=== PATIENT | male | born 1955 | race Two or more races ===

== ENCOUNTER 2018-01-09 10:00 | Inpatient (IN) | payer MEDICARE, OTHER ==
[~2018-01-09] VITALS: Ht 185.4 cm; Wt 71.8 kg
[2018-01-09] MEDS ORDERED: Solu-MEDROL 125mg Inj IVP ONE (10:15)
[2018-01-09] MEDS ORDERED: Ipratropium 0.02% Inh Soln 2.5ml UD HHN ONE (10:15)
[2018-01-09 10:19] VITALS: BP 127/89
[2018-01-09] MEDS ORDERED: LEXAPRO10 MG ORAL (10:27)
[2018-01-09] MEDS ORDERED: QUETIAPINE FUM400 MG ORAL (10:27)
[2018-01-09] MEDS ORDERED: DIABETA ORAL (10:27)
[2018-01-09] MEDS: Albuterol ud Inhalation HHN SCH ×3 (10:35→10:45)
[2018-01-09 10:47] LABS: BASOPHILS % (AUTO) 0.8 % (0.0-2.0); EOSINOPHILS % (AUTO) 2.9 % (0.0-3.0); LYMPHOCYTES % (AUTO) 17.1 % (20.0-45.0); MEAN CORPUSCULAR VOLUME 90 FL (80-99); MONOCYTES % (AUTO) 6.5 % (1.0-10.0); NEUTROPHILS % (AUTO) 72.7 % (45.0-75.0); PLATELET COUNT 258 K/UL (150-450); RED BLOOD COUNT 5.21 M/UL (4.70-6.10); RED CELL DISTRIBUTION WIDTH 11.5 % (11.6-14.8); WHITE BLOOD COUNT 9.3 K/UL (4.8-10.8)
[2018-01-09] MEDS ORDERED: TYLENOL EXTRA500 MG ORAL (10:47)
[2018-01-09] MEDS ORDERED: MILK OF MA400 MG/51 ORAL (10:47)
[2018-01-09] MEDS ORDERED: PROTONIX40 MG ORAL (10:47)
[2018-01-09] MEDS ORDERED: LEVOTHYROXINE75 MCG ORAL (10:47)
[2018-01-09] MEDS ORDERED: LEVEMIR FL100 UNIT/1 SUBQ (10:47)
[2018-01-09 10:49] LABS: ANION GAP 7 mmol/L (5-15); BLOOD UREA NITROGEN 17 mg/dL (7-18); CALCIUM 9.6 MG/DL (8.5-10.1); CARBON DIOXIDE 30 MMOL/L (21-32); CHLORIDE 99 MMOL/L (98-107); CREATININE 1.3 MG/DL (0.55-1.30); POTASSIUM 4.6 MMOL/L (3.5-5.1); SODIUM 136 MMOL/L (136-145)
[2018-01-09 10:50] LABS: APPEARANCE,URINE CLEAR; BILIRUBIN, URINE NEGATIVE (NEGATIVE); COLOR,URINE PALE YELLOW; GLUCOSE, URINE (UA) 3+ (NEGATIVE); KETONES,URINE NEGATIVE (NEGATIVE); LEUKOCYTE ESTERASE ,URINE NEGATIVE (NEGATIVE); NITRITE,URINE NEGATIVE (NEGATIVE); PH,URINE 6 (4.5-8.0); PROTEIN,URINE NEGATIVE (NEGATIVE); UROBILINOGEN,URINE NORMAL MG/DL (0.0-1.0)
[2018-01-09 10:59] LABS: ALANINE AMINOTRANSFERASE 14 U/L (12-78); ALBUMIN 3.6 G/DL (3.4-5.0); ALBUMIN/GLOBULIN RATIO 0.7 (1.0-2.7); ALKALINE PHOSPHATASE 109 U/L (46-116); ASPARTATE AMINO TRANSFERASE 14 U/L (15-37); BILIRUBIN,TOTAL 0.5 MG/DL (0.2-1.0); CREATINE KINASE 56 U/L (26-308)
--- NOTE | 2018-01-09 11:12 | Diagnostic Imaging Report ---
Indication: Cough Technique: One view of the chest Comparison: none Findings: There is central bronchial wall thickening. The lungs and pleural spaces are otherwise clear. The heart size is normal. Impression: Central bronchial wall thickening, likely on the basis of bronchitis or reactive airway disease No acute process otherwise
[2018-01-09] MEDS: NovoLOG Insulin Flexpen SUBQ SCH ×3 (11:30→20:44)
[2018-01-09] MEDS ORDERED: Nitroglycerin Subl 0.4mg tab SL PRN (11:30)
[2018-01-09] MEDS ORDERED: Albuterol/Ipratropium 3ml neb HHN PRN (11:30)
[2018-01-09] MEDS ORDERED: Promethazine/Codeine 5ml UD ORAL PRN (11:30)
[2018-01-09] MEDS: Solu-MEDROL 125mg Inj IV SCH ×2 (12:47→17:15)
--- NOTE | 2018-01-09 13:10 | Consultation ---
History of Present Illness General Date patient seen: Jan 09, 2018 Chief Complaint: Upper Respiratory Illness Present Illness HPI Pt came from [facility] for congestion since last night. Pt is not complaining of any pain. A + O x2. Has a skin tear on his nose. Pt refuses to be changed into a gown. Allergies: Coded Allergies: No Known Allergies (Unverified , 01/09/18) Medication History Scheduled Escitalopram Oxalate* (Lexapro*), 10 MG ORAL DAILY, (Reported) Insulin Detemir (Levemir Flexpen), 20 SUBQ DAILY, (Reported) Levothyroxine Sodium* (Levothyroxine Sodium*), 50 MCG ORAL DAILY, (Reported) Magnesium Hydroxide* (Milk Of Magnesia*), 30 ML ORAL EVERY 6 HOURS, (Reported) Pantoprazole* (Protonix*), 40 MG ORAL DAILY, (Reported) Quetiapine Fumarate* (Quetiapine Fumarate*), 400 MG ORAL BID, (Reported) [diabeta], 2.5 MG ORAL BID, (Reported) Scheduled PRN Acetaminophen* (Tylenol Extra Strength*), 325 MG ORAL Q6H PRN for Mild Pain/ Temp > 100.5, (Reported) Patient History Healthcare decision maker Resuscitation status Advanced Directive on File Past Medical/Surgical History Past Medical/Surgical History: (1) Diabetes mellitus (2) Depression Review of Systems All Other Systems: negative except mentioned in HPI Physical Exam General Appearance: WD/WN Lines, tubes and drains: peripheral, central line HEENT: atraumatic, anicteric Neck: non-tender, normal alignment Respiratory/Chest: chest wall non-tender, lungs clear Breasts: no masses Cardiovascular/Chest: normal peripheral pulses, normal rate Abdomen: normal bowel sounds Genitourinary/Rectal: normal genital exam Last 24 Hour Vital Signs Date Time Temp Pulse Resp B/P (MAP) Pulse Ox O2 Delivery O2 Flow Rate FiO2 01/09/18 12:17 Room Air 01/09/18 12:02 98.0 85 17 125/89 95 Room Air 01/09/18 11:57 79 19 100 Room Air 01/09/18 11:05 75 25 Room Air 21 01/09/18 11:05 21 01/09/18 11:05 75 25 100 Room Air 21 01/09/18 10:19 97.6 80 17 127/89 94 Room Air 01/09/18 10:19 80 17 Room Air 94 01/09/18 10:02 98.8 79 18 129/77 93 Room Air Laboratory Tests Test 01/09/18 10:20 01/09/18 10:35 White Blood Count 9.3 K/UL (4.8-10.8) Red Blood Count 5.21 M/UL (4.70-6.10) Hemoglobin 16.0 G/DL (14.2-18.0) Hematocrit 47.0 % (42.0-52.0) Mean Corpuscular Volume 90 FL (80-99) Mean Corpuscular Hemoglobin 30.8 PG (27.0-31.0) Mean Corpuscular Hemoglobin Concent 34.1 G/DL (32.0-36.0) Red Cell Distribution Width 11.5 % (11.6-14.8) L Platelet Count 258 K/UL (150-450) Mean Platelet Volume 6.6 FL (6.5-10.1) Neutrophils (%) (Auto) 72.7 % (45.0-75.0) Lymphocytes (%) (Auto) 17.1 % (20.0-45.0) L Monocytes (%) (Auto) 6.5 % (1.0-10.0) Eosinophils (%) (Auto) 2.9 % (0.0-3.0) Basophils (%) (Auto) 0.8 % (0.0-2.0) Prothrombin Time 10.3 SEC (9.30-11.50) Prothromb Time International Ratio 1.0 (0.9-1.1) Activated Partial Thromboplast Time 30 SEC (23-33) Sodium Level 136 MMOL/L (136-145) Potassium Level 4.6 MMOL/L (3.5-5.1) Chloride Level 99 MMOL/L (98-107) Carbon Dioxide Level 30 MMOL/L (21-32) Anion Gap 7 mmol/L (5-15) Blood Urea Nitrogen 17 mg/dL (7-18) Creatinine 1.3 MG/DL (0.55-1.30) Estimat Glomerular Filtration Rate 55.9 mL/min (>60) Glucose Level 238 MG/DL (74-106) H Lactic Acid Level 1.10 mmol/L (0.4-2.0) Calcium Level 9.6 MG/DL (8.5-10.1) Magnesium Level 1.7 MG/DL (1.8-2.4) L Total Bilirubin 0.5 MG/DL (0.2-1.0) Aspartate Amino Transf (AST/SGOT) 14 U/L (15-37) L Alanine Aminotransferase (ALT/SGPT) 14 U/L (12-78) Alkaline Phosphatase 109 U/L (46-116) Total Creatine Kinase 56 U/L (26-308) Troponin I 0.000 ng/mL (0.000-0.056) Pro-B-Type Natriuretic Peptide 8 pg/mL (0-125) Total Protein 8.6 G/DL (6.4-8.2) H Albumin 3.6 G/DL (3.4-5.0) Globulin 5.0 g/dL Albumin/Globulin Ratio 0.7 (1.0-2.7) L Urine Color Pale yellow Urine Appearance Clear Urine pH 6 (4.5-8.0) Urine Specific [place] 1.010 (1.005-1.035) Urine Protein Negative (NEGATIVE) Urine Glucose (UA) 3+ (NEGATIVE) H Urine Ketones Negative (NEGATIVE) Urine Blood Negative (NEGATIVE) Urine Nitrite Negative (NEGATIVE) Urine Bilirubin Negative (NEGATIVE) Urine Urobilinogen Normal MG/DL (0.0-1.0) Urine Leukocyte Esterase Negative (NEGATIVE) Microbiology Date/Time Source Procedure Growth Status 01/09/18 10:15 Nasal Nares Influenza Types A,B Antigen (SRIRAM) - Final Complete 01/09/18 10:30 Rectum Received Height (Feet): 6 Height (Inches): 2.00 Weight (Pounds): 200 Medications Current Medications Medications (Trade) Dose Ordered Sig/Diane Route PRN Reason Start Time Stop Time Status Last Admin Dose Admin Acetaminophen (Tylenol) 650 mg Q4H PRN ORAL fever 01/09/18 11:30 02/08/18 11:29 Albuterol/ Ipratropium (Albuterol/ Ipratropium) 3 ml Q4H PRN HHN dyspnea 01/09/18 11:30 01/14/18 11:29 Clonidine HCl (Catapres Tab) 0.1 mg Q4H PRN ORAL sbp more than 160 01/09/18 11:30 02/08/18 11:29 Dextrose (Dextrose 50%) 25 ml Q30M PRN IV Hypoglycemia 01/09/18 11:30 02/08/18 11:29 Dextrose (Dextrose 50%) 50 ml Q30M PRN IV Hypoglycemia 01/09/18 11:30 02/08/18 11:29 Escitalopram Oxalate (Lexapro) 10 mg DAILY ORAL 01/10/18 09:00 02/09/18 08:59 Heparin Sodium (Porcine) (Heparin 5000 units/ml) 5,000 units EVERY 12 HOURS SUBQ 01/09/18 21:00 02/08/18 20:59 Insulin Aspart (NovoLOG) BEFORE MEALS AND HS SUBQ 01/09/18 11:30 02/08/18 11:29 Levothyroxine Sodium (Synthroid) 50 mcg BEFORE BREAKFAST ORAL 01/10/18 06:30 02/09/18 06:29 Lorazepam (Ativan 2mg/ml 1ml) 0.5 mg Q4H PRN IV For Anxiety 01/09/18 11:30 01/16/18 11:29 Methylprednisolone Sodium Succinate (Solu-MEDROL) 60 mg EVERY 6 HOURS IV 01/09/18 12:00 02/08/18 11:59 01/09/18 12:47 Morphine Sulfate (Morphine Sulfate) 2 mg Q4H PRN IVP severe pain 7-10 01/09/18 11:30 01/16/18 11:29 Nitroglycerin (Ntg) 0.4 mg Q5M X 3 DOSES PRN SL Prn Chest Pain 01/09/18 11:30 02/08/18 11:29 Ondansetron HCl (Zofran) 4 mg Q6H PRN IVP Nausea & Vomiting 01/09/18 11:30 02/08/18 11:29 Promethazine HCl/ Codeine (Phenergan with Codeine) 5 ml Q6H PRN ORAL cough 01/09/18 11:30 02/08/18 11:29 Quetiapine Fumarate (SEROquel) 400 mg BID ORAL 01/09/18 18:00 02/08/18 17:59 Sodium Chloride 1,000 ml @ 300 mls/hr Q3H20M IV 01/09/18 10:15 02/08/18 10:14 Temazepam (Restoril) 15 mg HSPRN PRN ORAL Insomnia 01/09/18 21:00 01/16/18 20:59 Theophylline (Y[place]-Dur) 100 mg EVERY 12 HOURS ORAL 01/09/18 21:00 02/08/18 20:59 Assessment/Plan Problem List: (1) Acute bronchitis ICD Codes: J20.9 - Acute bronchitis, unspecified SNOMED: 22691935 (2) COPD exacerbation ICD Codes: J44.1 - Chronic obstructive pulmonary disease with (acute) exacerbation SNOMED: 840330355 (3) Diabetes mellitus ICD Codes: E11.9 - Type 2 diabetes mellitus without complications SNOMED: 39703858 (4) Depression ICD Codes: F32.9 - Major depressive disorder, single episode, unspecified SNOMED: 15860815 Assessment/Plan respiratory treatment titrate fio2 to sat of 92% check sputum continue abx sliding scale insulin coverage dvt prophylaxis. psych evaluation Sangeetha Cat MD Jan 09, 2018 13:10
[2018-01-09] MEDS: LORazepam Inj 2mg/ml 1ml IV PRN (16:04)
--- NOTE | 2018-01-09 16:05 | Emergency Room Report ---
History of Present Illness General Chief Complaint: Upper Respiratory Illness Source: Patient, Medical Record Present Illness HPI Patient presents with shortness of breath and cough. History of COPD. He's been using inhalers but still feels short of breath. There is some mild chest pain also. He is got productive phlegm but is clear in color. Chest pain rated 0/10. He fell several days ago and scraped his nose. No LOC. No extremity pain. Denies NVD, dysuria, other rashes, abdominal pain, NVD, back pain, calf tenderness or edema, headache. In assisted living due to bipolar disorder. Denies SI or HI. Smokes. Allergies: Coded Allergies: No Known Allergies (Unverified , 01/09/18) Patient History Past Medical History: see triage record Social History: Reports: smoking Social History Narrative assisted living Reviewed Nursing Documentation: PMH: Agreed; PSxH: Agreed Nursing Documentation-PMH Past Medical History Deferred: Pt Cognitively Impaired Past Medical History: No History, Except For Hx COPD: Yes Hx Diabetes: Yes Hx Gastrointestinal Problems: Yes - Gerd Hx Neurological Problems: Yes - Bipolar Hx Cerebrovascular Accident: No Hx Transient Ischemic Attacks: No Hx Dementia: No Hx Alzheimer's Disease: No Hx Parkinson's Disease: No Hx Meningitis: No Hx Encephalitis: No Hx Seizures: No Hx Epilepsy: No Hx Multiple Sclerosis: No Hx Cerebral Palsy: No Hx Amyotrophic Lat Sclerosis: No Hx Guillian-[place] Syndrome: No Hx Paralysis: No Hx Peripheral Neuropathy: No - hx of DM Hx Spinal Cord Injury: No Hx Head Trauma: No Hx Traumatic Brain Injury: No Hx Memory Loss: Yes Hx Concentration Difficulty: Yes Hx Speech Problem: No Hx Tremors: No Review of Systems All Other Systems: negative except mentioned in HPI Physical Exam Vital Signs Date Time Temp Pulse Resp B/P (MAP) Pulse Ox O2 Delivery O2 Flow Rate FiO2 01/09/18 10:02 98.8 79 18 129/77 93 Room Air 01/09/18 10:19 94 Sp02 EP Interpretation: reviewed, abnormal - interpreted as low by me General Appearance: well appearing, no apparent distress, GCS 15 Head: normocephalic Eyes: bilateral eye normal inspection, bilateral eye PERRL ENT: moist mucus membranes Neck: supple Respiratory: wheezing, expiration, other - some tachypnea Cardiovascular #1: regular rate, rhythm Cardiovascular #2: 2+ radial (R) Gastrointestinal: normal inspection, normal bowel sounds, non tender, no mass, non-distended Genitourinary: no CVA tenderness Musculoskeletal: back normal, gait/station normal, normal range of motion Neurologic: alert, grossly normal, oriented - X2 Psychiatric: depressed affect Skin: warm/dry, abrasions - nose Medical Decision Making Diagnostic Impression: Primary Impression: COPD exacerbation Additional Impressions: Chest pain Qualified Codes: R07.9 - Chest pain, unspecified Hypoxia ER Course Patient presents with dyspnea and cough. DDX: PNA, COPD exacerbation, bronchitis, pneumothorax amongst others. Evaluation with EKG, CXR and labs. Treatment with solu-medrol, breathing treatments and IV hydration. Cardiac monitoring. EKG without injury. CXR no infiltrate. Labs with normal WBC. CMP with elevated glucose. Troponin and lactate normal. Some improvement, but still with hypoxia and wheezing. Patient admitted tele Dr. Marie. Laboratory Tests Test 01/09/18 10:20 01/09/18 10:35 White Blood Count 9.3 K/UL (4.8-10.8) Red Blood Count 5.21 M/UL (4.70-6.10) Hemoglobin 16.0 G/DL (14.2-18.0) Hematocrit 47.0 % (42.0-52.0) Mean Corpuscular Volume 90 FL (80-99) Mean Corpuscular Hemoglobin 30.8 PG (27.0-31.0) Mean Corpuscular Hemoglobin Concent 34.1 G/DL (32.0-36.0) Red Cell Distribution Width 11.5 % (11.6-14.8) L Platelet Count 258 K/UL (150-450) Mean Platelet Volume 6.6 FL (6.5-10.1) Neutrophils (%) (Auto) 72.7 % (45.0-75.0) Lymphocytes (%) (Auto) 17.1 % (20.0-45.0) L Monocytes (%) (Auto) 6.5 % (1.0-10.0) Eosinophils (%) (Auto) 2.9 % (0.0-3.0) Basophils (%) (Auto) 0.8 % (0.0-2.0) Prothrombin Time 10.3 SEC (9.30-11.50) Prothrombin Time INR 1.0 (0.9-1.1) PTT 30 SEC (23-33) Sodium Level 136 MMOL/L (136-145) Potassium Level 4.6 MMOL/L (3.5-5.1) Chloride Level 99 MMOL/L (98-107) Carbon Dioxide Level 30 MMOL/L (21-32) Anion Gap 7 mmol/L (5-15) Blood Urea Nitrogen 17 mg/dL (7-18) Creatinine 1.3 MG/DL (0.55-1.30) Estimate Glomerular Filtration Rate 55.9 mL/min (>60) Glucose Level 238 MG/DL (74-106) H Lactic Acid Level 1.10 mmol/L (0.4-2.0) Calcium Level 9.6 MG/DL (8.5-10.1) Magnesium Level 1.7 MG/DL (1.8-2.4) L Total Bilirubin 0.5 MG/DL (0.2-1.0) Aspartate Amino Transferase (AST) 14 U/L (15-37) L Alanine Aminotransferase (ALT) 14 U/L (12-78) Alkaline Phosphatase 109 U/L (46-116) Total Creatine Kinase 56 U/L (26-308) Troponin I 0.000 ng/mL (0.000-0.056) Pro-B-Type Natriuretic Peptide 8 pg/mL (0-125) Total Protein 8.6 G/DL (6.4-8.2) H Albumin 3.6 G/DL (3.4-5.0) Globulin 5.0 g/dL Albumin/Globulin Ratio 0.7 (1.0-2.7) L Urine Color Pale yellow Urine Appearance Clear Urine pH 6 (4.5-8.0) Urine Specific [place] 1.010 (1.005-1.035) Urine Protein Negative (NEGATIVE) Urine Glucose (UA) 3+ (NEGATIVE) H Urine Ketones Negative (NEGATIVE) Urine Blood Negative (NEGATIVE) Urine Nitrite Negative (NEGATIVE) Urine Bilirubin Negative (NEGATIVE) Urine Urobilinogen Normal MG/DL (0.0-1.0) Urine Leukocyte Esterase Negative (NEGATIVE) Microbiology Date/Time Source Procedure Growth Status 01/09/18 10:15 Nasal Nares Influenza Types A,B Antigen (SRIRAM) - Final Complete EKG Diagnostic Results Rate: normal Rhythm: NSR ST Segments: no acute changes - NSSTTWchanges Rhythm Strip Diag. Results EP Interpretation: yes Rhythm: NSR, no PVC's, no ectopy Chest X-Ray Diagnostic Results Chest X-Ray Diagnostic Results : Chest X-Ray Ordered: Yes # of Views/Limited/Complete: 1 View Indication: Shortness of Breath Interpretation: no consolidation, no effusion, no pneumothorax Impression: Other - COPD Electronically Signed by: Electronically signed by Colt Zurita MD Last Vital Signs Date Time Temp Pulse Resp B/P (MAP) Pulse Ox O2 Delivery O2 Flow Rate FiO2 01/09/18 12:17 Room Air 01/09/18 12:02 98.0 85 17 125/89 95 01/09/18 11:57 21 Disposition: ADMITTED INPATIENT Condition: Serious Referrals: Scott Marie DO (PCP) Colt Zurita MD Jan 09, 2018 16:05
[2018-01-09] MEDS ORDERED: DiphenhydrAMINE 50mg/ml Inj IM SCH (17:00)
[2018-01-09] MEDS ORDERED: LORazepam Inj 2mg/ml 1ml IM SCH (17:00)
[2018-01-09] MEDS ORDERED: Haloperidol 5mg/ml Inj IM SCH (17:00)
[2018-01-09] MEDS: QUEtiapine 200mg tab ORAL SCH (17:15)
[2018-01-09 18:28] VITALS: BP 93/53
--- NOTE | 2018-01-09 18:30 | History and Physical Report ---
DATE OF ADMISSION: 01/09/2018 APPROXIMATE TIME: 1 p.m. CONSULTANTS: 1. Sangeetha Cat M.D. 2. Rene Vieira M.D. CHIEF COMPLAINT: Shortness of breath, COPD exacerbation, bipolar. BRIEF HISTORY: The patient is a 62-year-old male from [facility] presented with above-mentioned diagnosis, short of breath for two days, getting worse, slight wheezing, came to [place], diagnosed with above, admitted to medical floor for further treatment. Currently, slight short of breath. Slightly anxious in bed, no complaint. REVIEW OF SYSTEMS: No chest pain. Slight short of breath. No nausea, vomiting, or diarrhea. PAST MEDICAL HISTORY: Includes COPD, diabetes, bipolar. PAST SURGICAL HISTORY: Bilateral toes surgery. MEDICATIONS: Lexapro, Synthroid, heparin, Restoril, [place], Seroquel, Solu-Medrol, albuterol, Tylenol, morphine, Ativan, Catapres, Phenergan with codeine. ALLERGIES: Denies. SOCIAL HISTORY: Positive smoking. No alcohol. No intravenous drug abuse. FAMILY HISTORY: Noncontributory. PHYSICAL EXAMINATION: GENERAL: Calm, slightly anxious in bed, oriented x2, in no acute distress. VITAL SIGNS: Temperature is 98 degrees, pulse 85, respiratory rate 17, blood pressure 125/89. CARDIOVASCULAR: No murmur. LUNGS: Poor air exchange. Slight wheeze . ABDOMEN: Bowel sounds positive. Nontender. Nondistended. EXTREMITIES: No cyanosis, clubbing, or edema. NEUROLOGIC: The patient moves all extremities, slightly weak. LABORATORY AND DIAGNOSTIC DATA: Labs at this time show CBC is normal. BMP shows glucose 238, troponin 0.0, otherwise normal. INR is 1.0. Urinalysis show 3+ glucose. ASSESSMENT: 1. COPD exacerbation. 2. Diabetes. 3. Bipolar. 4. Hypothyroid. PLAN: 1. O2 and pulmonary treatment. 2. Taper off steroids. 3. Blood sugar control. 4. Dietary followup. 5. OT/PT. 6. Dietary evaluation. 7. CBC and BMP in the morning. 8. We will continue to follow the patient. Scott Marie D.O. DR: Aissatou JOB#: [id number] CC:
[2018-01-09 20:00] VITALS: BP 94/59
[2018-01-09] MEDS: Theophylline ER 100mg ORAL SCH (20:44)
[2018-01-09] MEDS: Heparin 5000 units/ml inj SUBQ SCH (20:45)
[2018-01-10] VITALS: BP 115/57
[2018-01-10] MEDS: Solu-MEDROL 125mg Inj IV SCH ×3 (00:09→12:48)
[2018-01-10 04:00] VITALS: BP 113/58
[2018-01-10] MEDS: NovoLOG Insulin Flexpen SUBQ SCH ×4 (05:47→20:48)
[2018-01-10 08:20] VITALS: BP 125/71
[2018-01-10] MEDS: Theophylline ER 100mg ORAL SCH ×2 (08:31→20:45)
[2018-01-10] MEDS: QUEtiapine 200mg tab ORAL SCH ×2 (08:31→17:27)
[2018-01-10] MEDS: Morphine Sulfate 2mg/ml Inj IVP PRN ×2 (08:33→15:34)
[2018-01-10] MEDS: Heparin 5000 units/ml inj SUBQ SCH ×2 (08:33→20:47)
[2018-01-10 09:19] LABS: HEMOGLOBIN 14.8 G/DL (14.2-18.0); MEAN CORPUSCULAR VOLUME 90 FL (80-99); PLATELET COUNT 238 K/UL (150-450); RED BLOOD COUNT 4.77 M/UL (4.70-6.10); RED CELL DISTRIBUTION WIDTH 11.3 % (11.6-14.8); WHITE BLOOD COUNT 13.3 K/UL (4.8-10.8)
[2018-01-10 09:41] LABS: ALANINE AMINOTRANSFERASE 17 U/L (12-78); ALBUMIN 3.5 G/DL (3.4-5.0); ALBUMIN/GLOBULIN RATIO 0.7 (1.0-2.7); ALKALINE PHOSPHATASE 103 U/L (46-116); ANION GAP 10 mmol/L (5-15); ASPARTATE AMINO TRANSFERASE 24 U/L (15-37); BILIRUBIN,TOTAL 0.4 MG/DL (0.2-1.0); BLOOD UREA NITROGEN 24 mg/dL (7-18); CALCIUM 9.7 MG/DL (8.5-10.1); CARBON DIOXIDE 25 MMOL/L (21-32); CHLORIDE 101 MMOL/L (98-107); CREATININE 1.6 MG/DL (0.55-1.30); POTASSIUM 4.4 MMOL/L (3.5-5.1); SODIUM 136 MMOL/L (136-145)
[2018-01-10 12:13] VITALS: BP 107/71
--- NOTE | 2018-01-10 13:02 | Pulmonology Progress Note ---
Assessment/Plan Problems: (1) Acute bronchitis (2) COPD exacerbation (3) Diabetes mellitus (4) Depression Assessment/Plan taper steroids f/u wbc, leukocytosis most likely secondary to steroids continue abx titrate fio2 to sat of 92% sliding scale, diabetic diet symptomatic treatment sputum cultures still pending. Subjective ROS Limited/Unobtainable: No Interval Events: less cough, less short of breath Allergies: Coded Allergies: No Known Allergies (Unverified , 01/09/18) Objective Last 24 Hour Vital Signs Date Time Temp Pulse Resp B/P (MAP) Pulse Ox O2 Delivery O2 Flow Rate FiO2 01/10/18 12:13 97.7 94 17 107/71 (83) 98 01/10/18 09:03 98.1 01/10/18 08:49 Room Air 01/10/18 08:20 98.1 88 17 125/71 (89) 96 01/10/18 04:00 98.5 78 18 113/58 (76) 94 01/10/18 00:00 98.8 71 19 115/57 (76) 94 01/09/18 21:00 Room Air 01/09/18 20:00 99.0 73 19 94/59 (71) 98 01/09/18 18:28 97.5 106 17 93/53 (66) 96 Intake and Output 01/09/18 01/10/18 19:00 07:00 Intake Total 1000 ml 360 ml Output Total 800 ml 800 ml Balance 200 ml -440 ml Intake Oral 1000 ml 360 ml Output Urine Total 800 ml 800 ml # Voids 4 2 General Appearance: WD/WN HEENT: normocephalic, atraumatic Respiratory/Chest: chest wall non-tender, crackles/rales Cardiovascular: normal peripheral pulses, normal rate Abdomen: normal bowel sounds, soft, non tender Genitourinary: normal external genitalia Extremities: no cyanosis Skin: no rash Microbiology Date/Time Source Procedure Growth Status 01/09/18 10:15 Nasal Nares Influenza Types A,B Antigen (SRIRAM) - Final Complete 01/09/18 10:30 Rectum Received Laboratory Tests 01/10/18 09:10: White Blood Count 13.3H, Red Blood Count 4.77, Hemoglobin 14.8, Hematocrit 43.0 , Mean Corpuscular Volume 90, Mean Corpuscular Hemoglobin 31.1H, Mean Corpuscular Hemoglobin Concent 34.4, Red Cell Distribution Width 11.3L, Platelet Count 238, Mean Platelet Volume 6.0L, Neutrophils (%) (Auto) , Lymphocytes (%) (Auto) , Monocytes (%) (Auto) , Eosinophils (%) (Auto) , Basophils (%) (Auto) , Differential Total Cells Counted 100, Neutrophils % ( Manual) 80H, Lymphocytes % (Manual) 14L, Monocytes % (Manual) 6, Eosinophils % ( Manual) 0, Basophils % (Manual) 0, Band Neutrophils 0, Platelet Estimate Adequate, Platelet Morphology Normal, Sodium Level 136, Potassium Level 4.4, Chloride Level 101, Carbon Dioxide Level 25, Anion Gap 10, Blood Urea Nitrogen 24H, Creatinine 1.6H, Estimat Glomerular Filtration Rate 44.0, Glucose Level 264H, Calcium Level 9.7, Total Bilirubin 0.4, Aspartate Amino Transf (AST/SGOT) 24, Alanine Aminotransferase (ALT/SGPT) 17, Alkaline Phosphatase 103, Total Protein 8.3H, Albumin 3.5, Globulin 4.8, Albumin/Globulin Ratio 0.7L Current Medications Medications (Trade) Dose Ordered Sig/Diane Route PRN Reason Start Time Stop Time Status Last Admin Dose Admin Acetaminophen (Tylenol) 650 mg Q4H PRN ORAL fever 01/09/18 11:30 02/08/18 11:29 Albuterol/ Ipratropium (Albuterol/ Ipratropium) 3 ml Q4H PRN HHN dyspnea 01/09/18 11:30 01/14/18 11:29 Clonidine HCl (Catapres Tab) 0.1 mg Q4H PRN ORAL sbp more than 160 01/09/18 11:30 02/08/18 11:29 Dextrose (Dextrose 50%) 25 ml Q30M PRN IV Hypoglycemia 01/09/18 11:30 02/08/18 11:29 Dextrose (Dextrose 50%) 50 ml Q30M PRN IV Hypoglycemia 01/09/18 11:30 02/08/18 11:29 Escitalopram Oxalate (Lexapro) 10 mg DAILY ORAL 01/10/18 09:00 02/09/18 08:59 01/10/18 08:31 Heparin Sodium (Porcine) (Heparin 5000 units/ml) 5,000 units EVERY 12 HOURS SUBQ 01/09/18 21:00 02/08/18 20:59 01/10/18 08:33 Insulin Aspart (NovoLOG) BEFORE MEALS AND HS SUBQ 01/09/18 11:30 02/08/18 11:29 01/10/18 11:55 Levothyroxine Sodium (Synthroid) 50 mcg BEFORE BREAKFAST ORAL 01/10/18 06:30 02/09/18 06:29 01/10/18 05:44 Lorazepam (Ativan 2mg/ml 1ml) 0.5 mg Q4H PRN IV For Anxiety 01/09/18 11:30 01/16/18 11:29 01/09/18 16:04 Methylprednisolone Sodium Succinate (Solu-MEDROL) 60 mg EVERY 6 HOURS IV 01/09/18 12:00 02/08/18 11:59 01/10/18 12:48 Morphine Sulfate (Morphine Sulfate) 2 mg Q4H PRN IVP severe pain 7-10 01/09/18 11:30 01/16/18 11:29 01/10/18 08:33 Nitroglycerin (Ntg) 0.4 mg Q5M X 3 DOSES PRN SL Prn Chest Pain 01/09/18 11:30 02/08/18 11:29 Ondansetron HCl (Zofran) 4 mg Q6H PRN IVP Nausea & Vomiting 01/09/18 11:30 02/08/18 11:29 Promethazine HCl/ Codeine (Phenergan with Codeine) 5 ml Q6H PRN ORAL cough 01/09/18 11:30 02/08/18 11:29 01/10/18 08:31 Quetiapine Fumarate (SEROquel) 400 mg BID ORAL 01/09/18 18:00 02/08/18 17:59 01/10/18 08:31 Temazepam (Restoril) 15 mg HSPRN PRN ORAL Insomnia 01/09/18 21:00 01/16/18 20:59 Theophylline ([place]) 100 mg EVERY 12 HOURS ORAL 01/09/18 21:00 02/08/18 20:59 01/10/18 08:31 Sangeetha Cat MD Jan 10, 2018 13:02
--- NOTE | 2018-01-10 14:05 | General Progress Note ---
Assessment/Plan Problem List: (1) Renal insufficiency ICD Codes: N28.9 - Disorder of kidney and ureter, unspecified SNOMED: 724454751, 405348859 (2) Leukocytosis ICD Codes: D72.829 - Elevated white blood cell count, unspecified SNOMED: 236973775, 847234507 (3) Diabetes mellitus ICD Codes: E11.9 - Type 2 diabetes mellitus without complications SNOMED: 15779717 (4) Acute bronchitis ICD Codes: J20.9 - Acute bronchitis, unspecified SNOMED: 33311689 (5) COPD exacerbation ICD Codes: J44.1 - Chronic obstructive pulmonary disease with (acute) exacerbation SNOMED: 659591320 Status: stable, progressing Assessment/Plan ot pt diet abx cbc bmp am Subjective Constitutional: Reports: weakness Respiratory: Reports: shortness of breath Allergies: Coded Allergies: No Known Allergies (Unverified , 01/09/18) All Systems: reviewed and negative except above Subjective calm in room Objective Last 24 Hour Vital Signs Date Time Temp Pulse Resp B/P (MAP) Pulse Ox O2 Delivery O2 Flow Rate FiO2 01/10/18 12:13 97.7 94 17 107/71 (83) 98 01/10/18 09:03 98.1 01/10/18 08:49 Room Air 01/10/18 08:20 98.1 88 17 125/71 (89) 96 01/10/18 04:00 98.5 78 18 113/58 (76) 94 01/10/18 00:00 98.8 71 19 115/57 (76) 94 01/09/18 21:00 Room Air 01/09/18 20:00 99.0 73 19 94/59 (71) 98 01/09/18 18:28 97.5 106 17 93/53 (66) 96 Intake and Output 01/09/18 01/10/18 19:00 07:00 Intake Total 1000 ml 360 ml Output Total 800 ml 800 ml Balance 200 ml -440 ml Intake Oral 1000 ml 360 ml Output Urine Total 800 ml 800 ml # Voids 4 2 Laboratory Tests 01/10/18 09:10: White Blood Count 13.3H, Red Blood Count 4.77, Hemoglobin 14.8, Hematocrit 43.0 , Mean Corpuscular Volume 90, Mean Corpuscular Hemoglobin 31.1H, Mean Corpuscular Hemoglobin Concent 34.4, Red Cell Distribution Width 11.3L, Platelet Count 238, Mean Platelet Volume 6.0L, Neutrophils (%) (Auto) , Lymphocytes (%) (Auto) , Monocytes (%) (Auto) , Eosinophils (%) (Auto) , Basophils (%) (Auto) , Differential Total Cells Counted 100, Neutrophils % ( Manual) 80H, Lymphocytes % (Manual) 14L, Monocytes % (Manual) 6, Eosinophils % ( Manual) 0, Basophils % (Manual) 0, Band Neutrophils 0, Platelet Estimate Adequate, Platelet Morphology Normal, Sodium Level 136, Potassium Level 4.4, Chloride Level 101, Carbon Dioxide Level 25, Anion Gap 10, Blood Urea Nitrogen 24H, Creatinine 1.6H, Estimat Glomerular Filtration Rate 44.0, Glucose Level 264H, Calcium Level 9.7, Total Bilirubin 0.4, Aspartate Amino Transf (AST/SGOT) 24, Alanine Aminotransferase (ALT/SGPT) 17, Alkaline Phosphatase 103, Total Protein 8.3H, Albumin 3.5, Globulin 4.8, Albumin/Globulin Ratio 0.7L Height (Feet): 6 Height (Inches): 1.00 Weight (Pounds): 158 General Appearance: confused EENT: normal ENT inspection Neck: normal alignment Cardiovascular: normal peripheral pulses, normal rate, regular rhythm Respiratory/Chest: chest wall non-tender, lungs clear, normal breath sounds Abdomen: normal bowel sounds, non tender, soft Extremities: normal inspection Edema: no edema noted Arm (L), no edema noted Arm (R), no edema noted Leg (L), no edema noted Leg (R), no edema noted Pedal (L), no edema noted Pedal (R), no edema noted Generalized Neurologic: motor weakness Skin: normal pigmentation, warm/dry Scott Marie DO Jan 10, 2018 14:05
[2018-01-10 15:58] VITALS: BP 134/68
--- NOTE | 2018-01-10 17:47 | Cardiology Report ---
APPROVED REPORT EKG Measurement Heart [id number] Sinus rhythm with premature atrial complexes Otherwise normal ECG
[2018-01-10 20:00] VITALS: BP 114/76
[2018-01-11] MEDS: NovoLOG Insulin Flexpen SUBQ SCH ×3 (05:48→16:30)
--- NOTE | 2018-01-11 07:45 | Consultation ---
DATE OF CONSULTATION: 01/10/2018 NOTE: POOR AUDIO PSYCHOTHERAPY CONSULTATION PROGRESS NOTE CONSULTING PHYSICIAN: Charla Jacobson PsyD. TREATING ATTENDING: Scott Marie D.O. HISTORY OF PRESENT ILLNESS: The patient is a 62-year-old male patient from . The patient is brought in to the hospital for chronic obstructive pulmonary disease exacerbation. The patient has been very confused, disorganized, , walking around, has been very aggressive and agitated, very combative and . The patient . The patient remains slightly confused and disoriented . The patient . The patient has , however, at this time, the patient is ambulatory and . He denies suicidal or homicidal thoughts or ideations. Denies any . PAST MEDICAL HISTORY: Includes a history of diabetes, COPD. ALLERGIES: The patient has no known drug allergies. SUBSTANCE ABUSE HISTORY: There is no indication of alcohol use. . PSYCHIATRIC HISTORY: The patient has a history of schizophrenia and . SOCIAL HISTORY: The patient is a 62-year-old male patient from . MENTAL STATUS EXAMINATION: The patient is alert and oriented to person and place. Mood is dysphoric. Affect is blunted. Thought process disorganized. Thought content confused with poor attention and concentration. Poor insight, judgment, and impulse control. . ASSESSMENT: 1. . 2. Agitation. 3. . 4. . 5. Positive . 6. . 7. . Charla Jacobson PsyD. DR: EMILY JOB#: [id number] CC:
[2018-01-11 08:00] VITALS: BP 125/73
[2018-01-11] MEDS: Theophylline ER 100mg ORAL SCH (08:55)
[2018-01-11] MEDS: QUEtiapine 200mg tab ORAL SCH ×2 (08:55→17:28)
[2018-01-11] MEDS: Heparin 5000 units/ml inj SUBQ SCH (08:58)
[2018-01-11] MEDS ORDERED: Solu-MEDROL 125mg Inj IV SCH (09:00)
--- NOTE | 2018-01-11 09:37 | Consultation ---
Consult Note Consult Note asked to eval for high Cr Patient presents with shortness of breath and cough. History of COPD. He's been using inhalers but still feels short of breath. There is some mild chest pain also. He is got productive phlegm but is clear in color. Chest pain rated 0/10.He fell several days ago and scraped his nose. No LOC. No extremity pain. Denies NVD, dysuria, other rashes, abdominal pain, NVD, back pain, calf tenderness or edema, headache. In assisted living due to bipolar disorder. Denies SI or HI. Past Medical History Deferred: Pt Cognitively Impaired Past Medical History: No History, Except For Hx COPD: Yes Hx Diabetes: Yes Hx Gastrointestinal Problems: Yes - Gerd Hx Neurological Problems: Yes - Bipolar Hx Peripheral Neuropathy: No - hx of DM Hx Memory Loss: Yes Hx Concentration Difficulty: Yes examined- confused data reviewed Assessment/Plan Acute Renal failure- rise of Cr Psychiatric disease COPD exac. / Acute bronchitis DM OOC Urine studies Hydrate Keep BP over 100 syst taper steroids as needed monitor renal parameters Francis Ryan MD Jan 11, 2018 09:37
[2018-01-11 12:00] VITALS: BP 124/61
--- NOTE | 2018-01-11 13:45 | Pulmonology Progress Note ---
Assessment/Plan Problems: (1) Acute bronchitis (2) COPD exacerbation (3) Diabetes mellitus (4) Depression Assessment/Plan dc steroids f/u wbc, leukocytosis most likely secondary to steroids continue abx titrate fio2 to sat of 92% sliding scale, diabetic diet symptomatic treatment sputum cultures still pending. improving Subjective ROS Limited/Unobtainable: No Constitutional: Reports: no symptoms HEENT: Repors: no symptoms Allergies: Coded Allergies: No Known Allergies (Unverified , 01/09/18) Objective Last 24 Hour Vital Signs Date Time Temp Pulse Resp B/P (MAP) Pulse Ox O2 Delivery O2 Flow Rate FiO2 01/11/18 12:00 97.7 86 18 124/61 (82) 99 01/11/18 09:00 Room Air 01/11/18 08:00 98.1 76 20 125/73 (90) 99 01/10/18 21:00 Room Air 01/10/18 20:00 97.5 86 20 114/76 (89) 97 01/10/18 19:40 79 18 Room Air 21 01/10/18 16:04 97.9 01/10/18 15:58 97.9 79 18 134/68 (90) 99 Intake and Output 01/10/18 01/11/18 18:59 06:59 Intake Total 840 ml Output Total 400 ml Balance 440 ml Intake Oral 840 ml Output Urine Total 400 ml # Voids 3 3 General Appearance: WD/WN HEENT: normocephalic, atraumatic Respiratory/Chest: chest wall non-tender, lungs clear Cardiovascular: normal peripheral pulses, normal rate Abdomen: normal bowel sounds, soft, non tender, no scars Extremities: no cyanosis Skin: no lesions Microbiology Date/Time Source Procedure Growth Status 01/09/18 10:20 Blood Blood Culture - Preliminary NO GROWTH AFTER 24 HOURS Resulted 01/09/18 10:05 Blood Blood Culture - Preliminary NO GROWTH AFTER 24 HOURS Resulted 01/09/18 10:15 Nasal Nares Influenza Types A,B Antigen (SRIRAM) - Final Complete 01/09/18 10:30 Rectum VRE Culture - Final NO VANCOMYCIN RESISTANT ENTEROCOCCUS ... Complete 01/09/18 10:30 Rectum - Final NO CARBAPENEM-RESISTANT ENTEROBACTERI... Complete Current Medications Medications (Trade) Dose Ordered Sig/Diane Route PRN Reason Start Time Stop Time Status Last Admin Dose Admin Acetaminophen (Tylenol) 650 mg Q4H PRN ORAL fever 01/09/18 11:30 02/08/18 11:29 Albuterol/ Ipratropium (Albuterol/ Ipratropium) 3 ml Q4H PRN HHN dyspnea 01/09/18 11:30 01/14/18 11:29 Clonidine HCl (Catapres Tab) 0.1 mg Q4H PRN ORAL sbp more than 160 01/09/18 11:30 02/08/18 11:29 Dextrose (Dextrose 50%) 25 ml Q30M PRN IV Hypoglycemia 01/09/18 11:30 02/08/18 11:29 Dextrose (Dextrose 50%) 50 ml Q30M PRN IV Hypoglycemia 01/09/18 11:30 02/08/18 11:29 Escitalopram Oxalate (Lexapro) 10 mg DAILY ORAL 01/10/18 09:00 02/09/18 08:59 01/11/18 08:55 Heparin Sodium (Porcine) (Heparin 5000 units/ml) 5,000 units EVERY 12 HOURS SUBQ 01/09/18 21:00 02/08/18 20:59 01/10/18 20:47 Insulin Aspart (NovoLOG) BEFORE MEALS AND HS SUBQ 01/09/18 11:30 02/08/18 11:29 01/11/18 11:36 Levothyroxine Sodium (Synthroid) 50 mcg BEFORE BREAKFAST ORAL 01/10/18 06:30 02/09/18 06:29 01/11/18 05:46 Lorazepam (Ativan 2mg/ml 1ml) 0.5 mg Q4H PRN IV For Anxiety 01/09/18 11:30 01/16/18 11:29 01/09/18 16:04 Methylprednisolone Sodium Succinate (Solu-MEDROL) 40 mg DAILY IVP 01/12/18 09:00 02/08/18 11:59 Morphine Sulfate (Morphine Sulfate) 2 mg Q4H PRN IVP severe pain 7-10 01/09/18 11:30 01/16/18 11:29 01/10/18 15:34 Nitroglycerin (Ntg) 0.4 mg Q5M X 3 DOSES PRN SL Prn Chest Pain 01/09/18 11:30 02/08/18 11:29 Ondansetron HCl (Zofran) 4 mg Q6H PRN IVP Nausea & Vomiting 01/09/18 11:30 02/08/18 11:29 Promethazine HCl/ Codeine (Phenergan with Codeine) 5 ml Q6H PRN ORAL cough 01/09/18 11:30 02/08/18 11:29 01/10/18 08:31 Quetiapine Fumarate (SEROquel) 400 mg BID ORAL 01/09/18 18:00 02/08/18 17:59 01/11/18 08:55 Sodium Chloride 1,000 ml @ 75 mls/hr [id number] IV 01/11/18 09:45 02/10/18 09:44 01/11/18 10:28 Tamsulosin HCl (Flomax) 0.4 mg BEDTIME ORAL 01/11/18 21:00 02/10/18 20:59 Temazepam (Restoril) 15 mg HSPRN PRN ORAL Insomnia 01/09/18 21:00 01/16/18 20:59 01/10/18 20:46 Theophylline (Yosi-Dur) 100 mg EVERY 12 HOURS ORAL 01/09/18 21:00 02/08/18 20:59 01/11/18 08:55 Sangeetha Cat MD Jan 11, 2018 13:45
--- NOTE | 2018-01-11 14:04 | Consultation ---
History of Present Illness General Date patient seen: Jan 11, 2018 Chief Complaint: Upper Respiratory Illness Present Illness HPI 62 y/o M with hx of COPD, DM2, GERD, hypothyroidism, bipolar dz presents to ED on 01/09 with SOB, productive cough, mild chest pain. Patient had recent fall and scraped his nose; did not had LOC. Denied N/v/d, dysuria, rash,a bd pain, HERNANDEZ upon admission afebrile Allergies: Coded Allergies: No Known Allergies (Unverified , 01/09/18) Medication History Scheduled Escitalopram Oxalate* (Lexapro*), 10 MG ORAL DAILY, (Reported) Insulin Detemir (Levemir Flexpen), 20 SUBQ DAILY, (Reported) Insuln Asp Prt/Insulin Aspart (Novolog Mix 70-30 Vial), 100 UNIT SQ ACHS, ( Reported) Levothyroxine Sodium* (Levothyroxine Sodium*), 50 MCG ORAL DAILY, (Reported) Magnesium Hydroxide* (Milk Of Magnesia*), 30 ML ORAL EVERY 6 HOURS, (Reported) Pantoprazole* (Protonix*), 40 MG ORAL DAILY, (Reported) Quetiapine Fumarate* (Quetiapine Fumarate*), 400 MG ORAL BID, (Reported) Tamsulosin Hcl (Tamsulosin Hcl*), 0.4 MG ORAL BEDTIME, (Reported) Theophylline (Theodur*), 100 MG ORAL Q12HR, (Reported) [diabeta], 2.5 MG ORAL BID, (Reported) Scheduled PRN Acetaminophen* (Tylenol Extra Strength*), 325 MG ORAL Q6H PRN for Mild Pain/ Temp > 100.5, (Reported) Acetaminophen* (Acetaminophen 325MG Tablet*), 650 MG ORAL Q4H PRN for For Pain, (Reported) Clonidine Hcl* (Catapres*), 0.1 MG ORAL EVERY 4 HOURS PRN for sbp>160, (Reported ) Codeine/Promethazine Hcl* (Promethazine-Codeine Syrup*), 5 ML ORAL Q6H PRN for For Cough, (Reported) Ipratropium/Albuterol Sulfate (DuoNeb 0.5-3(2.5)mg/3ml), 3 ML HHN Q4HR PRN for Shortness of Breath, (Reported) Nitroglycerin (Nitrostat), 0.4 MG SL Q5M X3 DOSES PRN for CHEST PAIN, (Reported) Temazepam* (Restoril*), 15 MG ORAL BEDTIME PRN for Insomnia, (Reported) Patient History Healthcare decision maker Brady Smyth Resuscitation status Full Code Advanced Directive on File No Patient History Narrative Pmhx: as above Shx: Positive smoking. No alcohol. No intravenous drug abuse. Fhx: non contributory Review of Systems All Other Systems: negative except mentioned in HPI Physical Exam Physical Exam Narrative GENERAL: Calm, slightly anxious in bed, oriented x2, in no acute distress. VITAL SIGNS: Temperature is 98 degrees, pulse 85, respiratory rate 17, blood pressure 125/89. CARDIOVASCULAR: No murmur. LUNGS: Poor air exchange. Slight wheeze . ABDOMEN: Bowel sounds positive. Nontender. Nondistended. EXTREMITIES: No cyanosis, clubbing, or edema. NEUROLOGIC: The patient moves all extremities, slightly weak. Last 24 Hour Vital Signs Date Time Temp Pulse Resp B/P (MAP) Pulse Ox O2 Delivery O2 Flow Rate FiO2 01/11/18 12:00 97.7 86 18 124/61 (82) 99 01/11/18 09:00 Room Air 01/11/18 08:00 98.1 76 20 125/73 (90) 99 01/10/18 21:00 Room Air 01/10/18 20:00 97.5 86 20 114/76 (89) 97 01/10/18 19:40 79 18 Room Air 21 01/10/18 16:04 97.9 01/10/18 15:58 97.9 79 18 134/68 (90) 99 Intake and Output 01/10/18 01/11/18 18:59 06:59 Intake Total 840 ml Output Total 400 ml Balance 440 ml Intake Oral 840 ml Output Urine Total 400 ml # Voids 3 3 Height (Feet): 6 Height (Inches): 1.00 Weight (Pounds): 158 Medications Current Medications Medications (Trade) Dose Ordered Sig/Diane Route PRN Reason Start Time Stop Time Status Last Admin Dose Admin Acetaminophen (Tylenol) 650 mg Q4H PRN ORAL fever 01/09/18 11:30 02/08/18 11:29 Albuterol/ Ipratropium (Albuterol/ Ipratropium) 3 ml Q4H PRN HHN dyspnea 01/09/18 11:30 12/2/18 11:29 Clonidine HCl (Catapres Tab) 0.1 mg Q4H PRN ORAL sbp more than 160 01/09/18 11:30 02/08/18 11:29 Dextrose (Dextrose 50%) 25 ml Q30M PRN IV Hypoglycemia 01/09/18 11:30 02/08/18 11:29 Dextrose (Dextrose 50%) 50 ml Q30M PRN IV Hypoglycemia 01/09/18 11:30 02/08/18 11:29 Escitalopram Oxalate (Lexapro) 10 mg DAILY ORAL 01/10/18 09:00 02/09/18 08:59 01/11/18 08:55 Heparin Sodium (Porcine) (Heparin 5000 units/ml) 5,000 units EVERY 12 HOURS SUBQ 01/09/18 21:00 02/08/18 20:59 01/10/18 20:47 Insulin Aspart (NovoLOG) BEFORE MEALS AND HS SUBQ 01/09/18 11:30 02/08/18 11:29 01/11/18 11:36 Levothyroxine Sodium (Synthroid) 50 mcg BEFORE BREAKFAST ORAL 01/10/18 06:30 02/09/18 06:29 01/11/18 05:46 Lorazepam (Ativan 2mg/ml 1ml) 0.5 mg Q4H PRN IV For Anxiety 01/09/18 11:30 01/16/18 11:29 01/09/18 16:04 Methylprednisolone Sodium Succinate (Solu-MEDROL) 40 mg DAILY IVP 01/12/18 09:00 02/08/18 11:59 Morphine Sulfate (Morphine Sulfate) 2 mg Q4H PRN IVP severe pain 7-10 01/09/18 11:30 01/16/18 11:29 01/10/18 15:34 Nitroglycerin (Ntg) 0.4 mg Q5M X 3 DOSES PRN SL Prn Chest Pain 01/09/18 11:30 02/08/18 11:29 Ondansetron HCl (Zofran) 4 mg Q6H PRN IVP Nausea & Vomiting 01/09/18 11:30 02/08/18 11:29 Promethazine HCl/ Codeine (Phenergan with Codeine) 5 ml Q6H PRN ORAL cough 01/09/18 11:30 02/08/18 11:29 01/10/18 08:31 Quetiapine Fumarate (SEROquel) 400 mg BID ORAL 01/09/18 18:00 02/08/18 17:59 01/11/18 08:55 Sodium Chloride 1,000 ml @ 75 mls/hr [id number] IV 01/11/18 09:45 02/10/18 09:44 01/11/18 10:28 Tamsulosin HCl (Flomax) 0.4 mg BEDTIME ORAL 01/11/18 21:00 02/10/18 20:59 Temazepam (Restoril) 15 mg HSPRN PRN ORAL Insomnia 01/09/18 21:00 01/16/18 20:59 01/10/18 20:46 Theophylline (Yosi-Dur) 100 mg EVERY 12 HOURS ORAL 01/09/18 21:00 02/08/18 20:59 01/11/18 08:55 Assessment/Plan Assessment/Plan Abx: None Assessment: COPD exacerbation; resolving -CXR: Central bronchial wall thickening, likely on the basis of bronchitis or reactive airway disease. No acute process otherwise Afebrile Mild leukocytosis -2ry to steroids (no leukocytosis upon admission) COPD DM2 GERD hypothyroidism bipolar dz Plan: -Continue to monitor off abx -ok for discharge from ID stand point -f/u cx -Monitor CBC/CMP, temperatures -aspiration precautions Thank you for this consultation. Will continue to follow along with you. Discussed with Myesha Berumen M.D. Jan 11, 2018 14:04
--- NOTE | 2018-01-11 14:59 | General Progress Note ---
Assessment/Plan Problem List: (1) Renal insufficiency ICD Codes: N28.9 - Disorder of kidney and ureter, unspecified SNOMED: 684623102, 457702386 (2) Leukocytosis ICD Codes: D72.829 - Elevated white blood cell count, unspecified SNOMED: 374461968, 872784302 (3) Diabetes mellitus ICD Codes: E11.9 - Type 2 diabetes mellitus without complications SNOMED: 34371652 (4) Acute bronchitis ICD Codes: J20.9 - Acute bronchitis, unspecified SNOMED: 90681796 (5) COPD exacerbation ICD Codes: J44.1 - Chronic obstructive pulmonary disease with (acute) exacerbation SNOMED: 256773983 Status: stable, progressing Assessment/Plan ot pt diet abx dc if clear Subjective Constitutional: Reports: weakness Allergies: Coded Allergies: No Known Allergies (Unverified , 01/09/18) All Systems: reviewed and negative except above Subjective calm in room Objective Last 24 Hour Vital Signs Date Time Temp Pulse Resp B/P (MAP) Pulse Ox O2 Delivery O2 Flow Rate FiO2 01/11/18 12:00 97.7 86 18 124/61 (82) 99 01/11/18 09:00 Room Air 01/11/18 08:00 98.1 76 20 125/73 (90) 99 01/10/18 21:00 Room Air 01/10/18 20:00 97.5 86 20 114/76 (89) 97 01/10/18 19:40 79 18 Room Air 21 01/10/18 16:04 97.9 01/10/18 15:58 97.9 79 18 134/68 (90) 99 Intake and Output 01/10/18 01/11/18 18:59 06:59 Intake Total 840 ml Output Total 400 ml Balance 440 ml Intake Oral 840 ml Output Urine Total 400 ml # Voids 3 3 Height (Feet): 6 Height (Inches): 1.00 Weight (Pounds): 158 General Appearance: lethargic EENT: normal ENT inspection Neck: normal alignment Cardiovascular: normal peripheral pulses, normal rate, regular rhythm Respiratory/Chest: chest wall non-tender, lungs clear, normal breath sounds Abdomen: normal bowel sounds, non tender, soft Extremities: normal inspection Edema: no edema noted Arm (L), no edema noted Arm (R), no edema noted Leg (L), no edema noted Leg (R), no edema noted Pedal (L), no edema noted Pedal (R), no edema noted Generalized Neurologic: motor weakness Skin: normal pigmentation, warm/dry Scott Marie DO Jan 11, 2018 14:59
[2018-01-11] MEDS: LORazepam Inj 2mg/ml 1ml IV PRN (15:54)
[2018-01-11 16:00] VITALS: BP 126/65
[2018-01-11] MEDS ORDERED: NITROSTAT0.4 M1 SL (16:47)
[2018-01-11] MEDS ORDERED: TAMSULOSIN HCL0.4 MG ORAL (16:48)
[2018-01-11] MEDS ORDERED: RESTORIL15 MG ORAL (16:49)
[2018-01-11] MEDS ORDERED: THEOPHYLLINE A100 MG ORAL (16:49)
[2018-01-11] MEDS ORDERED: CATAPRES0.1 MG ORAL (16:51)
[2018-01-11] MEDS ORDERED: PROMETHAZINE-C118 M1 ORAL (16:51)
[2018-01-11] MEDS ORDERED: DUONEB 0.5-3(2.53 ML HHN (16:53)
[2018-01-11] MEDS ORDERED: NOVOLOG MI100 UNIT/4 SQ (16:54)
[2018-01-11] MEDS ORDERED: ACETAMINOPHEN325 M1 ORAL (16:55)
[2018-01-11] MEDS ORDERED: Tamsulosin 0.4mg cap ORAL SCH (21:00)
--- NOTE | 2018-01-12 03:30 | Progress Note ---
DATE: 01/11/2018 PSYCHOTHERAPY CONSULTATION PROGRESS NOTE TREATING ATTENDING PHYSICIAN: Scott Marie D.O. SUBJECTIVE: The patient is a 62-year-old male patient, brought to the hospital with COPD. The patient today agitated, irritable, and . The patient is very confused and disorganized. The patient has a diagnosis of schizophrenia. MENTAL STATUS EXAMINATION: The patient is alert and oriented to person and place. Mood is dysphoric. Affect blunted. Thought process is slightly disorganized. . Poor insight, judgment, and impulse control. At this time, he denies suicidal or homicidal thoughts or ideation. He denies any auditory or visual hallucinations. The patient states that he has been attempting to control his impulses and yesterday. Today with reality orientation . The patient has been confused and disoriented. Oriented to the person, place, time and situation. PLAN: Provided the patient with supportive psychotherapy and provided the patient with . Provided the patient with cognitive behavioral therapy addressing the patient's cognitive distortions and negative catastrophic thoughts. Encouraging positive intervention. Also encouraging positive coping skills, relaxation exercises, and to reduce the patient's . Continue with behavioral management. This clinician has reviewed the patient's chart. Discussed treatment with treatment team. Charla Jacobson PsyD. DR: JUANITO JOB#: [id number] CC:
--- NOTE | 2018-01-12 08:24 | Discharge Summary ---
Discharge Summary Discharge Summary _ DATE OF ADMISSION: 01/09/2018 DATE OF DISCHARGE: 01/11/2018 CONSULTANTS: Dr. Sangeetha Jacobson PsyD BRIEF HOSPITAL COURSE: Patient is a 62-year-old male, from [facility], presented with shortness of breath for 2 days that has been getting worse with slight wheezing. He had been using inhalers with no relief of symptoms. He fell several days ago and scraped his nose. There was no loss of consciousness. No extremity pain. He has medical history significant for COPD, diabetes mellitus and bipolar disorder. On evaluation at ED, vital signs were stable. Blood work did not show any leukocytosis, hemoglobin and hematocrit were stable. Troponin was normal. Lactic acid normal. Chest x-ray showed central bronchial wall thickening, likely on the basis of bronchitis or reactive airway disease. He was admitted for COPD exacerbation. He was given IV steroids. She was given breathing treatment. Blood glucose was monitored. He was given insulin sliding scale. He was given supportive therapy. There was an increase in the patient's creatinine to 1.6. He was given IV hydration. Leukocytosis was due to steroid. Blood culture didn't isolate any growth. Influenza a and B screen were negative. Patient did not need antibiotic treatment. He was eventually discharged back to [facility]. FINAL DIAGNOSES: Acute COPD exacerbation Acute bronchitis Acute renal failure Diabetes mellitus GERD Hypothyroidism Bipolar disorder DISPOSITION: Patient was discharged back to intermediate. DISCHARGE MEDICATIONS: Refer to Discharge Medication List. I have been assigned to dictate discharge summary on this account, and I was not involved in the patient's management. Ladi Murray NP Jan 12, 2018 08:24
[2018-01-12] MEDS ORDERED: Solu-MEDROL 40mg Inj IVP SCH (09:00)
== END 2018-01-11 20:40 | DRG 191 ==
LOC: EDBD 10:00 → EMR 10:25 → 4E 10:36 → EDBEDREQ 10:55
DX: J44.1 Chronic obstructive pulmonary disease with (acute) exacerbation (principal); N17.9 Acute kidney failure, unspecified; J20.9 Acute bronchitis, unspecified; J44.0 Chronic obstructive pulmonary disease with (acute) lower respiratory infection; E11.9 Type 2 diabetes mellitus without complications; K21.9 Gastro-esophageal reflux disease without esophagitis; E03.9 Hypothyroidism, unspecified; F31.9 Bipolar disorder, unspecified; S01.21XA Laceration without foreign body of nose, initial encounter; W19.XXXA Unspecified fall, initial encounter
CPT/HCPCS: 36415; 71045; 80053; 81003; 82550; 82962; 83605; 83735; 83880; 84484; 85007; 85025; 85610; 85730; 86710; 87040; 87081; 93005; 94640; 94664; 96361; 96374; 97803; 99284; J1815